=== PATIENT | male | born 1960 | race American Indian/Alaskan Native ===

== ENCOUNTER 2016-12-23 07:02 | Day surgery (SDC) | payer BC ==
[2014-12-07 10:14] VITALS: BMI 36.8
[2016-12-23 07:29] VITALS: TEMP 97.8
[2016-12-23] MEDS ORDERED: Simethicone 40 mg/0.6 ml Liquid (30 ml) ONE (08:09)
[2016-12-23] MEDS ORDERED: Propofol 10 mg/ml Inj (20 ML) ONE (08:23)
[2016-12-23 10:36] VITALS: PULSE 65; RESP 20; O2SAT 99
[2016-12-23 10:38] VITALS: BP 157/94
== END 2016-12-23 10:36 | disposition home or self-care (01) ==
LOC: ENDO 07:02
PROVIDERS: ATTEND Internal Medicine Gastroenterology
DX: D12.4 Benign neoplasm of descending colon (principal); K57.30 Diverticulosis of large intestine without perforation or abscess without bleeding; K64.8 Other hemorrhoids; I10 Essential (primary) hypertension; C61 Malignant neoplasm of prostate; Z12.11 Encounter for screening for malignant neoplasm of colon
CPT/HCPCS: 45380; 88305; J2001; J2704